=== PATIENT | male | born 1940 | race Caucasian/White ===

== ENCOUNTER 2018-04-22 12:36 | Inpatient (IN) | payer MEDICARE ==
[~2018-04-22] VITALS: Ht 188 cm; Wt 76.7 kg
--- NOTE | ~2018-04-22 | CON ---
[address] [address] CONSULTATION Name: YODIT FAJARDO Room: [address] IN M.R.#: [id number] Admission: 04/22/18 Attend Phys: Chico Parada MD Discharge: Date of : 42 Report #: [id number] THIS REPORT FOR: //name// CC: Chico Lopez DATE OF SERVICE: 04/23/2018 REASON FOR CONSULT: Diarrhea and dysphagia. HISTORY OF PRESENT ILLNESS: This is a 78-year-old male with history of Parkinson disease who has had long history of irritable bowel syndrome, diarrhea predominant. The patient has had upper and lower endoscopy back in 12/2016 when his esophagus was dilated and found to have a gastric ulcer. He was placed on a PPI therapy. His colonoscopy was significant for diverticulosis and hemorrhoids. The patient reports that after eating a meal in [place] of days ago, he started having severe diarrhea, having BMs every 30 minutes. He presented to hospital with dehydration. Subsequent to his admission, CT of abdomen and pelvis was obtained. The CT of abdomen was significant for diffuse increased enhancement of colon suggestive of diffuse colitis. There was also a small amount of fluid in the proximal colon. There is a mild pericolonic stranding in junction of distal descending and sigmoid colon. There was also 2 adjacent 1-cm size nodular density visualized in the right lung base. The patient reports that he had history of right pneumothorax after falling from a horse. PAST MEDICAL HISTORY: Significant for history of irritable bowel syndrome, diarrhea predominant, peptic ulcer disease, diverticulosis, Parkinson disease, dyslipidemia, hypertension, arthritis, IBS, glaucoma, history of double hernia repair, prostatic hypertrophy, and history of right arm fracture with metal plate in place. ALLERGIES: No known drug allergy. MEDICATIONS: Please refer to hospital MAR. SOCIAL HISTORY: The patient is , lives at home, denies tobacco or alcohol use. He has been diagnosed with Parkinson disease and takes meds for the same. PHYSICAL EXAMINATION: VITAL SIGNS: Reveals blood pressure 118/56, respirations 17, pulse 72, temperature 98.1. [place] [address] CONSULTATION Name: YODIT FAJARDO Room: [address] IN [facility].#: [id number] Admission: 04/22/18 Attend Phys: Chico Parada MD Discharge: Date of : 42 Report #: [id number] LUNGS: Clear. CARDIOVASCULAR: Regular. ABDOMEN: Soft, mildly tender in the left lower abdomen. Bowel sounds are positive. NEUROLOGIC: The patient is alert and oriented x 3. LABORATORY DATA: Reveal sodium of 141, potassium 4.0, BUN is 13, creatinine 0.9, AST is 18, ALT 9. Magnesium 1.7, total bilirubin is 0.2. INR is 1.2. WBC is 8.8 with hemoglobin of 14.2 and platelet of 97. IMAGING: As discussed above. ASSESSMENT AND PLAN: The patient with history of peptic ulcer disease and dysphagia who started having dysphagia type symptoms. Once again, we will consider upper endoscopy with dilation of the esophagus. He also has worsening of diarrhea. We await the Clostridium difficile results and if that is negative, we will consider a flex sigmoidoscopy with biopsies as CT shows diffuse colitis and pericolonic stranding in the left colon. I will make further recommendation once the endoscopic evaluations are complete. By: 1212 18Amber Cross MD /nt
--- NOTE | ~2018-04-22 | PROC ---
[facility] [address] [place] [address] PROCEDURE REPORT Name: YODIT FAJARDO Room: [address] IN M.R.#: [id number] Admission: 04/22/18 Attend Phys: Chico Parada MD Discharge: 04/24/18 Date of : 42 Report #: [id number] THIS REPORT FOR: //name// For GI report, please see the Provation report in Perceptive 7 content. By: 0641Medical Records Staff DANNI /GEORGETTE
[~2018-04-22 12:36] MED LIST: CALCIUM 500 +1 EAC5 PO; CENTRUM SILVER1 EAC2 PO; DICYCLOMINE HCL20 MG PO; FISH OIL 1,001000 M2 PO; FLOMAX0.4 MG PO; GAS-X125 M1 PO; HYDROCODONE-AP1 EAC6 PO; LEVAQUIN 500 M500 M2 PO; LISINOPRIL-HCT1 EACH PO; LISINOPRIL10 MG PO; LOPRESSOR25 PO; LUMIGAN2.5 M1 OP; MAGNESIUM250 M1 PO; MOMETASONE FURO60 ML NASAL; NIACIN 500 MG500 M1 PO; OSELB75 PO; PROBIOTIC1 EAC1 PO; PROSCAR 5MG TABL5 MG PO; TUMERIC PO; VITAMIN B-12500 MCG PO; VITAMIN D3400 UNIT PO; VITAMINC500 PO; ZANTAC 150MG T150 MG PO; ZOCOR20 MG PO
[2018-04-22 12:57] LABS: ABSOLUTE EOSINOPHILS 0.2 thou/uL (0.0-0.7); ABSOLUTE LYMPHOCYTES 1.2 thou/uL (0.8-5.3); ABSOLUTE NEUTROPHILS 7.1 thou/uL (1.6-8.1); BASOPHILS 0.2 %; HEMATOCRIT 47.7 % (42.0-52.0); LYMPHOCYTES 12.4 %; MCH 31.3 pg (26.0-34.0); MCHC 33.6 g/dL (28.0-37.0); MCV 93.3 fL (80.0-100.0); MONOCYTES 10.5 %; MPV 10.3 fl. (7.2-11.1); NUCLEATED RBCS 0 /100WBC; PLATELET COUNT* 121 thou/uL (150-400); POLYS 74.9 %; RBC 5.11 mil/uL (4.50-6.00); RDW-CV 13.9 % (10.5-14.5); WBC 9.5 thou/uL (4.0-11.0)
[2018-04-22 13:19] LABS: ALBUMIN 3.5 g/dL (3.4-5.0); CALCIUM 9.3 mg/dL (8.5-10.1); CREATININE 0.9 mg/dL (0.6-1.3); DIRECT BILIRUBIN 0.2 mg/dL (<0.1-0.3); MAGNESIUM 2.1 mg/dL (1.8-2.4); TOTAL BILIRUBIN 0.7 mg/dL (<0.1-1.0); TOTAL PROTEIN 7.3 g/dL (6.4-8.2)
[2018-04-22 17:36] VITALS: BP 140/64
--- NOTE | 2018-04-22 17:57 | NUR ---
ADMITTED TO ROOM 305, NO DISTRESS NOTED, DENIES PAIN, DOES REPORT DIARRHEA EARLIER THIS AM. ADMISSION ASSESSMENT COMPLETE, LABS DRAWN, MEDICATION LIST RECONCILED. CONTINENT OF B/B, CT CHEST COMPLETE, [place] W/ [place], PRESENT AND WORKING WITH PATIENT. ORDERS RECEIVED/REVIEWED, PLAN OF CARE REVIEWED WITH PATIENT, DENIES QUETIONS, CALL LIGHT IN REACH, CONT POC.
[2018-04-22] MEDS ORDERED: VOLTAREN GEL 1100 G2 TOP (18:12)
[2018-04-22] MEDS ORDERED: SINEMET 25-2501 EAC1 PO (18:13)
[2018-04-22] MEDS ORDERED: OXYBUTYNIN 5 MG5 M2 PO (18:14)
[2018-04-22] MEDS ORDERED: FLONASE 0.05%50 MCG NASAL (18:15)
[2018-04-22] MEDS ORDERED: PROBIOTIC1 EAC1 PO (18:16)
--- NOTE | 2018-04-22 19:17 | NUR ---
THIS NURSE ASSUMES CARE OF PT AT 1900, PT IS ALERT,ORIENTED TO SELF, DENIES PAIN, PT HAS EATEN 25% OF DINNER, SHE IS ASKING WHY SHE IS HERE, PT REORIENTED TO PLACE, SITUATION, AND TIME, PT ON ROOM AIR, IV FLUIDS INFUSING, PT RESTING QUIETLY IN BED, NO S/S ACUTE DISTRESS, BED ALARM ON
[2018-04-22 19:30] VITALS: BP 152/68; BP 156/53
--- NOTE | 2018-04-22 20:05 | NUR ---
THIS NURSE ASSUMES CARE OF PT AT 1900, PT IS ALERT AND ORIENTED X4 WITH NO COMPLAINTS OF PAIN, IV BEING PLACED TO LEFT UPPER ARM, AT 1999 ASSESSMENT COMPLETE, PT HAS IRREGULAR HEARTBEAT, NO OTHER ABNORMAL FINDINGS, PT IS ASKING ABOUT HIS MEDICATION FOR PARKINSON'S DISEASE, RECEIVED ORDER FROM DR ARIZMENDI TO START SINEMET AND DO NOT RESUME ANY OTHER HOME MEDS AT THIS TIME BESIDES WHAT IS ALREADY ORDERED
[2018-04-23] VITALS: BP 118/56
[2018-04-23 04:32] LABS: ABSOLUTE EOSINOPHILS 0.4 thou/uL (0.0-0.7); ABSOLUTE LYMPHOCYTES 1.2 thou/uL (0.8-5.3); ABSOLUTE NEUTROPHILS 6.2 thou/uL (1.6-8.1); BASOPHILS 0.2 %; EOSINOPHILS 4.9 %; HEMOGLOBIN 14.2 gm/dL (14.0-18.0); MCH 31.1 pg (26.0-34.0); MCHC 33.7 g/dL (28.0-37.0); MCV 92.2 fL (80.0-100.0); MONOCYTES 10.8 %; MPV 10.2 fl. (7.2-11.1); NUCLEATED RBCS 0 /100WBC; PLATELET COUNT* 97 thou/uL (150-400); POLYS 70.1 %; RBC 4.56 mil/uL (4.50-6.00); RDW-CV 13.8 % (10.5-14.5); WBC 8.8 thou/uL (4.0-11.0)
[2018-04-23 04:46] LABS: ALBUMIN 2.8 g/dL (3.4-5.0); CALCIUM 8.4 mg/dL (8.5-10.1); CREATININE 0.9 mg/dL (0.6-1.3); MAGNESIUM 1.7 mg/dL (1.8-2.4); TOTAL BILIRUBIN 0.6 mg/dL (<0.1-1.0); TOTAL PROTEIN 5.5 g/dL (6.4-8.2)
[2018-04-23 08:00] VITALS: BP 126/60
--- NOTE | 2018-04-23 15:30 | NUR ---
SW met with pt to complete initial assessment, introduce self, and SW role. Pt alert, oriented, pleasant. Pt lives at home with his . Pt independent with ADLs and mobility and still mows his lawn, etc. Pt does not anticipate any dc needs. Pt hopeful to receive the upper and lower GI tests today. SW to continue to follow to assist with safe dc planning.
[2018-04-23 16:00] VITALS: BP 141/69
--- NOTE | 2018-04-23 17:08 | EKG ---
[place] [address] ELECTROCARDIOGRAM REPORT Name: YODIT FAJARDO Room: [address] ADM IN M.R.#: [id number] Admission: 04/22/18 Attend Phys: Chico Parada MD Discharge: Date of : 42 Report #: [id number] THIS REPORT FOR: //name// [facility] Test Date: 2018-04-23 Test Time: 15:38:16 Pat Name: YODIT FAJARDO Department: Room: [address] Gender: M Media/Instructional Designer: BOUBACAR : 1940 Requested By: Amber Cross Order Number: [id number] Michelle MD: Mack Chacon Measurements Intervals [place] Rate: 75 P: 0 LA: 223 QRS: -19 QRSD: 118 T: 114 QT: 384 QTc: 429 Interpretive Statements Sinus rhythm Multiple ventricular premature complexes Prolonged LA interval Probable LVH with secondary repol abnrm Anterior ST elevation, probably due to LVH Baseline wander in lead(s) V2 Compared to ECG 06/27/2016 09:57:08 Ventricular premature complex(es) now present ST (T wave) deviation still present Electronically Signed On 04-23-2018 17:08:20 CDT by Mack Chacon [email or web address] <ELECTRONICALLY SIGNED> By: Mack Chacon MD, FACC 04/23/18 1708 1538 1538 Mack Chacon MD, FACC /EPI
[2018-04-24] VITALS: BP 142/61
[2018-04-24 04:41] LABS: HEMATOCRIT 41.8 % (42.0-52.0); HEMOGLOBIN 14.1 gm/dL (14.0-18.0); MCH 31.1 pg (26.0-34.0); MCHC 33.6 g/dL (28.0-37.0); MCV 92.6 fL (80.0-100.0); MPV 10.1 fl. (7.2-11.1); RBC 4.52 mil/uL (4.50-6.00); RDW-CV 13.7 % (10.5-14.5); WBC 5.3 thou/uL (4.0-11.0)
[2018-04-24 04:54] LABS: CREATININE 0.7 mg/dL (0.6-1.3); MAGNESIUM 2.1 mg/dL (1.8-2.4); POTASSIUM 3.8 mmol/L (3.5-5.1)
--- NOTE | 2018-04-24 05:22 | NUR ---
PT. COMPLETED BOWEL PREP OF 2 DULCOLAX AND MG CITRATE AT 2200, TOLERATED WELL. PT. HAD FIRST BOWEL MOVEMENT AT 0100, CONTINENT, INDEPENDENTLY UP AD KACY. CONSENT FOR EGD/COLONOSCOPY TO BE SIGNED THIS A.M. NPO AT 0600. NO C/O PAIN THIS SHIFT. IVF DC'D AFTER 3RD LITER NS WAS INFUSED. PT. DENIES NEEDS AT THIS TIME, CALL LIGHT IN REACH, WILL CONTINUE TO MONITOR.
[2018-04-24 07:35] VITALS: BP 108/49
[2018-04-24 17:58] VITALS: BP 108/49
--- NOTE | 2018-04-24 18:50 | NUR ---
PATIENT A&OX4, RA, IV LEFT FOREARM SALINE LOCK. IV DISCONTINUED, CATHETER FULLY INTACT. UP AD KACY, STEADY GAIT. NO C/O PIAN/N/V. EGD AND COLONOSCOPY THIS MORNING. TOLERATING FOOD AND BMX2 SMALL WITHIN 8 HOURS. DISCHARGED PATIENT, REVIEWED PAPERWORK WHILE SPOUSE AT BEDSIDE. ALL QUESTIONS AND CONCERNS ANSWERED. NO OTHER CONCERNS AT THIS TIME. PATIENT LEFT UNIT AT 1840 VIA W/C WITH ALL BELONGINGS, NOTHING LEFT BEHIND. APPROPRAITE AND COOPORATIVE WITH CARE.
--- NOTE | 2018-04-28 11:08 | PATH ---
[facility] [address] [place] [address] PATHOLOGY RPT PROCEDURE Name: YODIT FAJARDO Room: [address] IN M.R.#: [id number] Admission: 04/22/18 Date of : 42 Discharge: 04/24/18 Report #: [id number] Path Case #: [id number] [facility] Accession Number: [id number] . 01 Material submitted: . PART A: SMALL BOWEL BIOPSIES; RULE OUT CELIAC PART B: RANDOM COLON BIOPSIES FOR MICROSCOPIC COLITIS . 01 Clinical history: . None provided . 02 Diagnosis: A. Small bowel biopsies: - Mild nonspecific active duodenitis, negative for granulomas and dysplasia/adenomatous change. See comment. . B. Random colon biopsies: - Focal active colitis with suggestion of chronic colitis, negative for granulomas, viral inclusions, and dysplasia. See comment. . (JORDYN:amie; 04/27/2018) NICOLASA/04/27/2018 . 02 Comment: In the small bowel biopsies (A), there is no significant villous atrophy or intraepithelial lymphocytosis and therefore celiac disease is unlikely. . The random colon biopsies (B) show benign colonic mucosa with prominent spotty active cryptitis including several crypt abscesses in association with an abundance of eosinophils and there is spotty crypt disarray verging on distortion in association with spotty basal lymphoplasmacytosis as well. These findings can be seen in diverticular disease and with use of non-steroidal anti-inflammatory agents; however, Crohn's disease is also thought to be a possibility and should be considered in the clinical differential. . (JORDYN:amie; 04/27/2018) . 02 Electronically signed: . Marco A Hererra MD, Pathologist NPI- [id number] . 01 Gross description: . A. Received in formalin labeled "Yodit Fajardo, small bowel biopsies, rule out celiac," are 3 segments of [place] soft tissue measuring 0.9 x 0.6 x 0.2 cm in aggregate dimensions and ranging from 0.3 to 0.5 cm in maximum dimension. The specimen is submitted entirely in cassette [place] [address] PATHOLOGY RPT PROCEDURE Name: YODIT FAJARDO Room: [address] IN M.R.#: [id number] Admission: 04/22/18 Date of : 42 Discharge: 04/24/18 Report #: [id number] Path Case #: [id number] B. Received in formalin labeled "Yodit Fajardo, random colon biopsies for microscopic colitis," are 4 segments of [place] soft tissue measuring 1.1 x 0.8 x 0.2 cm in aggregate dimensions and ranging from 0.3 to 0.5 cm in maximum dimension. The specimen is submitted entirely in cassette B1. (TSD; 04/24/2018) TOB/TOB . 02 Pathologist provided ICD-10: K29.80, K52.9 . 02 CPT . 426054, [id number] Specimen Comment: A courtesy copy of this report has been sent to Specimen Comment: [phone], , . Specimen Comment: Report sent to ,DR ARIZMENDI / DR DEVINE Performed at: [address], [place] [id number] MD Moody Nicholson MD Phone: [phone] Performed at: 02 [facility] [address], [place], [place] [id number] MD Marco A Herrera MD Phone: [phone]
== END 2018-04-24 18:40 | disposition home or self-care (01) | DRG 392 ==
LOC: M.CT 12:36 → M.3W 15:58
PROVIDERS: Registered Nurse Diabetes Educator; ADMIT Internal Medicine
PROC: 0DB98ZX Excision of Duodenum, Via Natural or Artificial Opening Endoscopic, Diagnostic (ICD-10-PCS; principal; 2018-04-24)
PROC: 0DJD8ZZ Inspection of Lower Intestinal Tract, Via Natural or Artificial Opening Endoscopic (ICD-10-PCS; principal; 2018-04-24)
DX: K90.0 Celiac disease (principal); K52.9 Noninfective gastroenteritis and colitis, unspecified; G20 Parkinson's disease; K57.90 Diverticulosis of intestine, part unspecified, without perforation or abscess without bleeding; E78.5 Hyperlipidemia, unspecified; I10 Essential (primary) hypertension; M19.90 Unspecified osteoarthritis, unspecified site; H40.9 Unspecified glaucoma; N40.0 Benign prostatic hyperplasia without lower urinary tract symptoms; E78.00 Pure hypercholesterolemia, unspecified; E86.9 Volume depletion, unspecified; R91.1 Solitary pulmonary nodule; L92.9 Granulomatous disorder of the skin and subcutaneous tissue, unspecified; K21.9 Gastro-esophageal reflux disease without esophagitis; K22.2 Esophageal obstruction; K64.9 Unspecified hemorrhoids; Z87.11 Personal history of peptic ulcer disease; Z87.81 Personal history of (healed) traumatic fracture; Z79.899 Other long term (current) drug therapy